=== PATIENT | female | born 2000 | race Caucasian/White ===

== ENCOUNTER 2020-05-07 12:29 | Outpatient (REF) | payer BC, SELFPAY ==
--- NOTE | ~2020-05-07 | US_ITS ---
EXAMINATION: US THYROID CLINICAL INFORMATION: Neck lump. Entire neck now painful. COMPARISON: None TECHNIQUE: Linear transducer grayscale and color Doppler examination with attention to the region of the thyroid. FINDINGS: SIZE: Measurements of the thyroid lobes and nodules are given in sagittal, anteroposterior and transverse dimensions respectively. Right Thyroid Lobe: 5.1 x 1.5 x 1.6 cm, volume 6.4 mL. Parenchyma: The gland echotexture is homogeneous. Thyroid vascularity is normal. Left Thyroid Lobe: 4.0 x 1.5 x 1.5 cm, volume 4.7 mL. Parenchyma: The gland echotexture is homogeneous. Thyroid vascularity is normal. Isthmus: 0.3 cm in maximum AP dimension. There is a small colloid cyst in the right lobe measuring 2 x 3 mm. No significant focal thyroid nodule is seen. NODES: There are enlarged bilateral cervical lymph nodes adjacent to the thyroid gland. These measure 1 and 2 cm in transverse dimension on the left and 1.1 cm in transverse dimension on the right. Lymph nodes demonstrate cortical thickening and preserved hilar flow. US/US thyroid IMPRESSION: Normal-appearing thyroid gland. Enlarged bilateral cervical lymph nodes with cortical thickening. Management should be determined on a clinical basis. Infectious, inflammatory and neoplastic processes should be considered. If lymph nodes persist, this would be amenable to ultrasound-guided fine-needle aspiration.
== END 2020-05-07 12:30 | disposition home or self-care (01) ==
LOC: HO.US 12:29
PROVIDERS: Visit Provider General Practice
DX: R59.9 Enlarged lymph nodes, unspecified (principal)
CPT/HCPCS: 76536